=== PATIENT | male | born 1965 | race Caucasian/White ===

== ENCOUNTER 2022-12-19 09:43 | Outpatient (CLI) | payer BC, SELFPAY ==
[2022-12-19 15:33] LABS: Chloride* 103 mmol/L (96-114)
[2022-12-19 15:34] LABS: Potassium* 4.8 mmol/L (3.6-5.1); Sodium* 136 mmol/L (135-149)
[2022-12-19 15:36] LABS: Alanine Aminotransferase* 25 U/L (4-50); Blood Urea Nitrogen* 22 mg/dL (7-30); Carbon Dioxide* 30 mmol/L (20-32); Cholesterol* 122 mg/dL (90-199); Creatinine* 0.9 mg/dL (0.5-1.5); Estimated Glomerular Filt Rate 101 ml/min
[2022-12-19 15:37] LABS: Calcium* 8.8 mg/dL (8.4-10.6); Glucose* 135 mg/dL (60-115); HDL Cholesterol* 54 mg/dL (>=40); LDL Cholesterol Calculated 45 mg/dL (<100); Triglycerides* 115 mg/dL (40-149)
[2022-12-19 16:08] LABS: PSA Screen* 0.29 ng/mL (0.10-4.00)
== END 2022-12-19 09:44 | disposition home or self-care (01) ==
PROVIDERS: PCP Family Medicine; Visit Provider Family Medicine
DX: E78.5 Hyperlipidemia, unspecified (principal); E10.9 Type 1 diabetes mellitus without complications; F41.1 Generalized anxiety disorder; Z12.5 Encounter for screening for malignant neoplasm of prostate
CPT/HCPCS: 80048; 80061; 84153; 84460

== ENCOUNTER 2023-11-28 08:56 | Outpatient (CLI) | payer BC, SELFPAY | END 2023-11-28 08:57 | disposition home or self-care (01) | PROVIDERS: PCP Family Medicine; Visit Provider Family Medicine | DX: Z01.818 Encounter for other preprocedural examination (principal); E10.9 Type 1 diabetes mellitus without complications | CPT/HCPCS: 80048; 80061; 84460 ==

== ENCOUNTER 2024-11-18 09:05 | Outpatient (CLI) | payer BC, SELFPAY | END 2024-11-18 09:06 | disposition home or self-care (01) | PROVIDERS: PCP Family Medicine; Visit Provider Family Medicine | DX: E10.9 Type 1 diabetes mellitus without complications (principal); F41.1 Generalized anxiety disorder | CPT/HCPCS: 80048; 80061; 82550 ==